=== PATIENT | female | born 1990 | race African-American/Black ===

== ENCOUNTER 2020-11-10 22:31 | Outpatient (CLI) | payer MEDICAID, OTHER ==
[~2020-11-10] VITALS: Ht 144.8 cm; Wt 66.0 kg
[2020-11-10 22:56] VITALS: BP 120/63
[2020-11-10 23:03] LABS: MICROSCOPIC NOT IND
[2020-11-10] MEDS ORDERED: LACTATED RINGERS 1,000 ML IVBOLUS ONE (23:35)
[2020-11-10] MEDS ORDERED: TERBUTALINE 1 MG/ML, 1ML SQ ONE (23:35)
[2020-11-11] MEDS ORDERED: CALCIUM CARBONATE 500 MG TAB.CHEW ONE (00:14)
[2020-11-11] MEDS ORDERED: CALCIUM CARBONATE 500 MG TAB.CHEW PO ONE (00:30)
== END 2020-11-11 01:07 | disposition home or self-care (01) ==
LOC: LDOP 22:31
PROVIDERS: ATTEND Student in an Organized Health Care Education/Training Program
DX: O26.893 Other specified pregnancy related conditions, third trimester (principal); R10.9 Unspecified abdominal pain; Z3A.36 36 weeks gestation of pregnancy
CPT/HCPCS: 59025; 81003; 87086; 96360; 96372; J3105; J7120

== ENCOUNTER 2020-12-07 01:09 | Outpatient (CLI) | payer OTHER ==
[~2020-12-07] VITALS: Ht 144.8 cm; Wt 66.4 kg
[2020-12-07 01:33] VITALS: BP 105/61
== END 2020-12-07 01:44 | disposition home or self-care (01) ==
LOC: LDOP 01:09
PROVIDERS: ATTEND Student in an Organized Health Care Education/Training Program
DX: O26.893 Other specified pregnancy related conditions, third trimester (principal); R10.9 Unspecified abdominal pain; Z3A.37 37 weeks gestation of pregnancy
CPT/HCPCS: 59025

== ENCOUNTER 2020-12-18 05:57 | Inpatient (IN) | payer OTHER ==
[~2020-12-18] VITALS: Ht 144.8 cm; Wt 66.0 kg
[2020-12-18] MEDS: LACTATED RINGERS 1,000 ML IV SCH ×5 (06:25→23:30)
[2020-12-18] MEDS ORDERED: ALUMINUM/MAG/SIMETHICONE 30 ML UDC PO PRN (06:30)
[2020-12-18] MEDS ORDERED: TERBUTALINE 1 MG/ML, 1ML IVPush PRN (06:30)
[2020-12-18] MEDS ORDERED: OXYTOCIN 30U/ 0.9% NaCL 500ML 500 ML IV ONE (06:30)
[2020-12-18] MEDS ORDERED: CALCIUM CARBONATE 500 MG TAB.CHEW PO PRN (06:30)
[2020-12-18] MEDS ORDERED: METOCLOPRAMIDE 5 MG/ML, 2ML IVPush PRN (06:30)
[2020-12-18] MEDS ORDERED: SODIUM CITRATE/CITRIC ACID 30 ML UDC PO PRN (06:30)
[2020-12-18] MEDS ORDERED: ONDANSETRON 2MG/ML, 2ML IVPush PRN ×2 (06:30→21:00)
[2020-12-18] MEDS ORDERED: TERBUTALINE 1 MG/ML, 1ML SQ PRN (06:30)
[2020-12-18] MEDS ORDERED: OXYTOCIN 30U/ 0.9% NaCL 500ML 500 ML IV PRN (07:00)
[2020-12-18 07:12] VITALS: BP 111/62
[2020-12-18 07:23] LABS: BASOPHILS % (AUTO) 1 % (0-1); EOSINOPHILS % (AUTO) 1 % (1-7); LYMPHOCYTES % (AUTO) 29 % (22-44); MEAN CORPUSCULAR HEMOGLOBIN 30.2 pg (27.0-34.8); MEAN CORPUSCULAR HGB CONC 34.1 g/dL (32.4-35.8); MEAN PLATELET VOLUME 7.5 fL (7.4-10.4); MONOCYTES % (AUTO) 6 % (2-9); NEUTROPHILS % (AUTO) 63 % (42-75); PLATELET COUNT 230 x10^3/uL (130-400); RED BLOOD COUNT 3.56 x10^6/uL (3.82-5.3); RED CELL DISTRIBUTION WIDTH 14.6 % (9.6-15.2)
[2020-12-18] MEDS: D5%-LACTATED RINGERS 1,000 ML IV SCH ×3 (07:30→23:30)
[2020-12-18] MEDS ORDERED: NEWBORN KIT ONE (08:22)
[2020-12-18] MEDS ORDERED: FENTANYL PF 100 MCG/2ML ONE ×2 (11:27→23:04)
[2020-12-18] MEDS ORDERED: FENTANYL PF 100 MCG/2ML IV PRN ×2 (12:00→21:00)
[2020-12-18] MEDS ORDERED: FENTANYL PF 100 MCG/2ML IVPush PRN (12:00)
[2020-12-18] MEDS ORDERED: FENTANYL/BUPIV./NS/PF 250 ML EPIDCONT ONE (12:27)
[2020-12-18] MEDS ORDERED: BUPIVACAINE 0.25% ONE (12:27)
[2020-12-18] MEDS ORDERED: LACTATED RINGERS 1,000 ML IVBOLUS PRN (12:30)
[2020-12-18] MEDS ORDERED: NALOXONE 0.4 MG/ML, 1ML IVPush PRN (12:30)
[2020-12-18] MEDS ORDERED: FENTANYL/BUPIV./NS/PF 250 ML EPIDCONT SCH (12:30)
[2020-12-18] MEDS ORDERED: EPHEDRINE 50 MG/ML, 1ML IVPush PRN ×2 (12:30→21:00)
[2020-12-18] MEDS ORDERED: SODIUM CITRATE/CITRIC ACID 15 ML UDC ONE (20:36)
[2020-12-18] MEDS ORDERED: MEPERIDINE/PF 25MG/0.5ML IVPush PRN (21:00)
[2020-12-18] MEDS ORDERED: hydrALAzine 20 MG/ML, 1ML IV PRN (21:00)
[2020-12-18] MEDS ORDERED: LABETALOL 5MG/ML, 20ML IV PRN (21:00)
[2020-12-18] MEDS ORDERED: PROMETHAZINE 25 MG/ML, 1ML IV PRN (21:00)
[2020-12-18] MEDS ORDERED: ALBUTEROL SULFATE 2.5 MG/3 ML NPPB PRN (21:00)
[2020-12-18] MEDS ORDERED: HYDROcodone/APAP 7.5-325MG/15ML UDC PO PRN (21:00)
[2020-12-18] MEDS ORDERED: METOPROLOL 1 MG/ML, 5ML IV PRN (21:00)
[2020-12-18] MEDS ORDERED: MIDAZOLAM 1 MG/ML, 2ML IV PRN (21:00)
[2020-12-18] MEDS ORDERED: HYDROmorphone 2 MG/ML, 1ML IVPush PRN (21:00)
[2020-12-18] MEDS ORDERED: OXYcodone 5 MG/5 ML ORAL.SOL UDC PO PRN (21:00)
[2020-12-18] MEDS ORDERED: PROPOFOL 10 MG/ML, 20ML ONE (23:03)
[2020-12-18] MEDS ORDERED: ONDANSETRON 2MG/ML, 2ML ONE (23:03)
[2020-12-18] MEDS ORDERED: OXYTOCIN 10 UNITS/ML, 1ML ONE (23:03)
[2020-12-18] MEDS ORDERED: CEFAZOLIN 1,000 MG ONE (23:03)
[2020-12-18] MEDS ORDERED: PHENYLEPHRINE 10 MG/ML ONE (23:03)
[2020-12-18] MEDS ORDERED: DEXAMETHASONE 4 MG/ML, 1ML ONE (23:03)
[2020-12-18] MEDS ORDERED: KETOROLAC 30 MG/1 ML ONE (23:03)
[2020-12-18] MEDS ORDERED: EPHEDRINE 50 MG/ML, 1ML ONE (23:03)
[2020-12-18] MEDS ORDERED: SUCCINYLCHOLINE 20 MG/ML, 10ML ONE (23:03)
[2020-12-18] MEDS ORDERED: AZITHROMYCIN 500 MG in SODIUM CHLORIDE 0.9% 250 ML IV ONE (23:30)
[2020-12-18] MEDS ORDERED: LACTATED RINGERS 1,000 ML IVBOLUS ONE (23:30)
[2020-12-18] MEDS ORDERED: SODIUM CITRATE/CITRIC ACID 30 ML UDC PO ONE (23:30)
[2020-12-18] MEDS ORDERED: METOCLOPRAMIDE 5 MG/ML, 2ML IV ONE (23:30)
[2020-12-19] MEDS ORDERED: FENTANYL PF 100 MCG/2ML ONE (00:07)
[2020-12-19] MEDS ORDERED: HYDROmorphone 2 MG/ML, 1ML ONE (00:15)
[2020-12-19] MEDS ORDERED: TRANEXAMIC ACID 1,000 MG in SODIUM CHLORIDE 0.9% 100 ML IVPB ONE (00:30)
[2020-12-19] MEDS ORDERED: BISACODYL 10 MG SUPP PR PRN (00:30)
[2020-12-19] MEDS ORDERED: MORPHINE SULFATE 4 MG/ML, 1ML IVPush PRN (00:30)
[2020-12-19] MEDS ORDERED: METHYLERGONOVINE 0.2 MG/ML IM PRN (00:30)
[2020-12-19] MEDS ORDERED: OXYcodone/APAP 5/325MG TABLET PO PRN (00:30)
[2020-12-19] MEDS ORDERED: METOCLOPRAMIDE 5 MG/ML, 2ML IV PRN (00:30)
[2020-12-19] MEDS ORDERED: MISOPROSTOL 200 MCG TABLET PO PRN (00:30)
[2020-12-19] MEDS: LACTATED RINGERS 1,000 ML IV SCH ×6 (00:30→20:30)
[2020-12-19] MEDS ORDERED: ONDANSETRON 2MG/ML, 2ML IV PRN (00:30)
[2020-12-19] MEDS ORDERED: GLYCERIN ADULT SUPP PR PRN (00:30)
[2020-12-19] MEDS ORDERED: CARBOPROST TROMETHAMINE 250 MCG/ML, 1ML IM PRN (00:30)
[2020-12-19] MEDS: OXYTOCIN 30U/ 0.9% NaCL 500ML 500 ML IV SCH ×3 (01:00→20:30)
[2020-12-19 02:30] VITALS: BP 96/63
[2020-12-19 07:35] VITALS: BP 101/68
[2020-12-19 07:47] LABS: BASOPHILS % (AUTO) 0 % (0-1); EOSINOPHILS % (AUTO) 0 % (1-7); LYMPHOCYTES % (AUTO) 7 % (22-44); MEAN CORPUSCULAR HEMOGLOBIN 29.7 pg (27.0-34.8); MEAN CORPUSCULAR HGB CONC 33.7 g/dL (32.4-35.8); MEAN PLATELET VOLUME 7.6 fL (7.4-10.4); MONOCYTES % (AUTO) 4 % (2-9); NEUTROPHILS % (AUTO) 88 % (42-75); PLATELET COUNT 213 x10^3/uL (130-400); RED BLOOD COUNT 3.26 x10^6/uL (3.82-5.3); RED CELL DISTRIBUTION WIDTH 14.4 % (9.6-15.2)
[2020-12-19] MEDS ORDERED: KETOROLAC 30 MG/1 ML ONE (08:58)
[2020-12-19] MEDS: DOCUSATE 100 MG CAPSULE PO PRN ×2 (09:01→21:48)
[2020-12-19] MEDS: KETOROLAC 30 MG/1 ML IVPush PRN ×2 (09:02→15:16)
[2020-12-19] MEDS: OXYcodone IR 5MG TABLET PO PRN ×4 (09:04→21:49)
[2020-12-19] MEDS: PRENATAL VIT/IRON/FA 1 EACH TABLET PO SCH (09:04)
[2020-12-19 12:15] VITALS: BP 93/60
[2020-12-19] MEDS: SIMETHICONE 80 MG CHEW TAB PO PRN ×2 (12:37→21:48)
[2020-12-19 16:36] VITALS: BP 111/71
[2020-12-19 20:00] VITALS: BP 97/65
[2020-12-19] MEDS: IBUPROFEN 600 MG TABLET PO PRN (21:48)
[2020-12-20] MEDS: LACTATED RINGERS 1,000 ML IV SCH ×5 (00:30→16:30)
[2020-12-20] MEDS: OXYcodone IR 5MG TABLET PO PRN ×5 (01:57→20:46)
[2020-12-20] MEDS: IBUPROFEN 600 MG TABLET PO PRN ×4 (04:09→23:58)
[2020-12-20] MEDS: OXYTOCIN 30U/ 0.9% NaCL 500ML 500 ML IV SCH ×2 (06:30→16:30)
[2020-12-20 07:00] VITALS: BP 95/63
[2020-12-20] MEDS: DOCUSATE 100 MG CAPSULE PO PRN ×2 (08:16→20:46)
[2020-12-20] MEDS: PRENATAL VIT/IRON/FA 1 EACH TABLET PO SCH (08:16)
[2020-12-20] MEDS: SIMETHICONE 80 MG CHEW TAB PO PRN ×3 (08:16→20:46)
[2020-12-20] MEDS: ACETAMINOPHEN 325 MG TABLET PO PRN ×3 (08:16→17:05)
[2020-12-20 20:00] VITALS: BP 111/76
[2020-12-21] MEDS: LACTATED RINGERS 1,000 ML IV SCH ×4 (00:30→12:30)
[2020-12-21] MEDS: OXYcodone IR 5MG TABLET PO PRN ×3 (01:14→11:49)
[2020-12-21] MEDS: OXYTOCIN 30U/ 0.9% NaCL 500ML 500 ML IV SCH ×2 (02:30→12:30)
[2020-12-21 07:00] VITALS: BP 96/65
[2020-12-21] MEDS: PRENATAL VIT/IRON/FA 1 EACH TABLET PO SCH (07:43)
[2020-12-21] MEDS: DOCUSATE 100 MG CAPSULE PO PRN (07:43)
[2020-12-21] MEDS ORDERED: OXYC1TAB14 PO (12:54)
[2020-12-21] MEDS ORDERED: IBUP-1222 PO (12:54)
== END 2020-12-21 13:50 | disposition home or self-care (01) | DRG 788 ==
LOC: LDIP 05:57 → 2NW 12-19 02:15
PROVIDERS: ADMIT Student in an Organized Health Care Education/Training Program; ATTEND Student in an Organized Health Care Education/Training Program
PROC: 10D00Z1 Extraction of Products of Conception, Low, Open Approach (ICD-10-PCS; principal; 2020-12-19)
DX: O76 Abnormality in fetal heart rate and rhythm complicating labor and delivery (principal); O32.8XX0 Maternal care for other malpresentation of fetus, not applicable or unspecified; O69.81X0 Labor and delivery complicated by cord around neck, without compression, not applicable or unspecified; O77.0 Labor and delivery complicated by meconium in amniotic fluid; Z37.0 Single live birth; Z3A.39 39 weeks gestation of pregnancy; Z82.49 Family history of ischemic heart disease and other diseases of the circulatory system; Z20.822 Contact with and (suspected) exposure to COVID-19
CPT/HCPCS: 36415; 85025; 86592; 86850; 86900; 87635; G0378; J0456; J0690; J1100; J1170; J1885; J2405; J2704; J3010; J0330; J2270; J2370; J2590; J2765; J7050; J7120